=== PATIENT | female | born 1990 | race Caucasian/White ===

== ENCOUNTER → 2016-04-18 | Outpatient (CLI) | payer BC, OTHER ==
[~2016-04-18] MED LIST: FLUT0.15 NAE; IUD'IUD
== END | disposition home or self-care (01) ==
LOC: C.RDSM 15:26
PROVIDERS: ATTEND Physical Medicine & Rehabilitation Sports Medicine
DX: M25.562 Pain in left knee (principal)

== ENCOUNTER → 2016-05-10 | Outpatient (CLI) | payer BC, OTHER ==
--- NOTE | 2016-05-10 21:19 | DIAGNOSTIC IMAGING REPORT ---
MRI OF THE LEFT KNEE CLINICAL HISTORY: Left knee pain. COMPARISON STUDY: Radiograph of left knee dated 04/18/2016. MRI of the left knee dated 03/30/2016. TECHNIQUE: MRI of the left knee was performed utilizing proton density, T1, and T2-weighted sequences in the axial, sagittal, coronal planes. IV contrast was not administered for this examination. The examination is degraded by motion artifact. FINDINGS: Menisci: There is a small radial tear identified in the lateral meniscus, best seen on coronal image #18. There is significant truncation involving the body and posterior horn of the medial meniscus, possibly related to previous surgery. No flipped fragment is identified. Degenerative tearing seen in the remaining posterior horn. Ligaments: Postoperative changes are consistent with previous ACL repair. There is complete rupture of the graft at the tibial insertion. The posterior cruciate ligament is intact. There is thickening and irregularity of the medial collateral ligament consistent with grade 1 injury. The fibers appear intact. The lateral collateral ligament complex appears preserved. Extensor mechanism: The extensor mechanism is intact. Hoffa's fat pad is normal in appearance. Articular cartilage and bone: There is mild (less than 50%) degenerative thinning of the articular cartilage along the weightbearing surface in the medial compartment. The articular cartilage in the lateral and patellofemoral compartments appears preserved. Bony contusion is seen within the medial tibial plateau and the medial femoral condyle. There is also likely contusion within the lateral femoral condyle. Tiny marginal osteophytes are noted. Joint effusion: There is a moderate joint effusion. Soft tissues: There is a large popliteal cyst which measures up to 6 cm. The musculature surrounding the knee joint is normal in bulk and signal intensity. There is deep soft tissue edema identified in the popliteal fossa. IMPRESSION: 1. There is evidence of previous ACL rupture with graft repair. There is full-thickness rupture at the tibial end of the graft. 2. The medial meniscus appears truncated, likely related to previous surgical resection. There is degenerative tearing identified within the remaining posterior horn. 3. A small radial tear is identified in the lateral meniscus. 4. Bony contusions as above. 5. Joint effusion and popliteal cyst. 6. There is thickening and irregularity of the medial collateral ligament consistent with grade 1 injury. The fibers of the ligament are intact. Electronically signed by: Jani Davis M.D. 05/10/2016 9:18 PM Dictated Date/Time: 05/10/2016 9:11 PM
== END | disposition home or self-care (01) ==
LOC: C.MRI 20:01
PROVIDERS: ATTEND Family Medicine
DX: S83.512A Sprain of anterior cruciate ligament of left knee, initial encounter (principal); S83.282A Other tear of lateral meniscus, current injury, left knee, initial encounter; M71.22 Synovial cyst of popliteal space [Baker], left knee; M25.462 Effusion, left knee; X58.XXXA Exposure to other specified factors, initial encounter; Z98.890 Other specified postprocedural states

== ENCOUNTER → 2016-06-28 | Day surgery (SDC) | payer BC, OTHER ==
[2016-06-21 13:18] VITALS: Ht 172.7 cm; Wt 73.6 kg
[~2016-06-28] VITALS: Ht 172.7 cm; Wt 73.6 kg
[~2016-06-28] MED LIST changes: +ATROPINE SULFATE 0.1 MG/ML 5ML SYR IV PRN; +BUPIVACAINE/EPINEPHRINE 0.25% 1:200,000 30 ML VIAL ONE; +CEFAZOLIN 1000MG/55 ML D5W IV SCH; +CEFAZOLIN 2000 MG/60 ML D5W IV SCH; +CEFTRIAXONE SOD 1 GM VIAL ONE; +CEFTRIAXONE SOD 2 GM VIAL IV ONE; +DEXAMETHASONE SOD INJ 4 MG/ML VIAL IV PRN; +DEXAMETHASONE SOD INJ 4 MG/ML VIAL ONE; +EpHEDrine SULFATE INJ 50 MG/ML AMP IV PRN; +EpINEphrine INJ 1MG/ML AMP 1 MG/ML AMP ONE; +FENTANYL CITRATE INJ 50 MCG/1 ML 2 ML VIAL IV PRN; +FENTANYL CITRATE INJ 50 MCG/1 ML 2 ML VIAL ONE; +HYDROmorphone INJ 1 MG/ML SYR ONE; +KETOROLAC TROMETHAMINE 30 MG/ML VIAL IV. PRN; +LABETALOL HCL IV 5 MG/ML 20ML IV PRN; +LACTATED RINGER'S 1000ML 1,000 ML IV SCH; +LIDOCAINE HCL 1% MPF 2 ML VIAL ONE; +LIDOCAINE HCL 2% 2 ML VIAL (20MG/ML) ONE; +METOCLOPRAMIDE HCL INJ 5 MG/ML 2 ML VIAL IV PRN; +MIDAZOLAM HCL 1 MG/ML 2ML VIAL ONE; +MoRPHine SULFATE 10 MG/ML CARP/VIAL IV PRN; +ONDANSETRON INJ 2 MG/ML 2 ML VIAL IV PRN; +ONDANSETRON INJ 2 MG/ML 2 ML VIAL ONE; +OXYCODONE/ACETAMINOPHEN 5-325 TAB PO PRN; +PHENYLEPHRINE 100MCG/ML 5ML SYR IV PRN; +PROPOFOL IV EMULSION 10 MG/ML 20 ML VIAL IV ONE; +SODIUM CHLORIDE 0.9% 1000ML 1,000 ML IV SCH
--- NOTE | 2016-06-28 10:05 | History & Physical Bridge Note ---
H&P Re-Evaluation Bridge Note: I have examined the patient, reviewed the History & Physical and in the interval since the performance of the History & Physical I have noted the following changes of clinical significance: No changes noted
--- NOTE | 2016-06-28 10:06 | Discharge Instructions ---
Discharge Instructions Date of Service Jun 28, 2016. Visit Reason for Visit: Left Knee Acl Graft Tear Discharge Discharge Diagnosis / Problem: same Discharge Goals Goal(s): Decrease discomfort, Improve function Medications Stopped Medications Name(s): na Restart Stopped Medication(s): use scripts as directed Activity Recommendations Activity Limitations: as noted below Lifting Limitations: until after follow-up appointment Exercise/Sports Limitations: until after follow-up appointment May Resume Sexual Activity: after follow-up appointment Shower/Bathe: keep incision dry Driving or Machine Use: resume 1 day after discharge Weightbearing Status: Left weightbearing (as tolerated) Anesthesia . Post Anesthesia Instructions: If you have had General Anesthesia or IV Sedation: * Do not drive today. * Resume driving when surgeon permits. * Do not make important decisions or sign legal documents today. * Call surgeon for: 1. Temperature elevations greater than 101 degrees F. 2. Uncontrollable pain. 3. Excessive bleeding. 4. Persistent nausea and vomiting. 5. Medication intolerance (nausea, vomiting or rash). * For nausea and vomiting use only clear liquids such as: tea, soda, bouillon until nausea subsides, then gradually increase diet as tolerated. * If you have any concerns or questions, call your surgeon's office. If physician is unavailable and it is an emergency, call 911 or go to the nearest emergency room. . Instructions / Follow-Up Instructions / Follow-Up The following instructions are a useful guide to questions you may have after your Anterior Cruciate Ligament Reconstruction surgery. If you have any questions contact the office at . ACTIVITY RECOMMENDATIONS: * Heavy manual labor is not permitted until 4-6 months after surgery. * Sports are not permitted until 6-9 months after surgery. * Return to activity is individualized. * DRIVING: Driving is not permitted until 3-4 weeks after surgery at a minimum. Please ask your doctor when it is safe to resume driving. If you have an automatic vehicle and your left leg has been operated on, then you may begin driving as soon as you are comfortable and can drive safely. * BATHING: You may shower or sponge-bathe immediately after surgery. The dressing will need to be covered with a plastic bag or plastic wrap until the dressing is changed on the fourth or fifth day after surgery. Once the dressing has been changed on the fourth or fifth day after surgery, you may shower and get the incision wet. * Wash with regular soap and water. * Do not bathe (submerge the incision), soak, swim or use a hot tub until the incision is completely healed over with normal skin and the doctor has given the OK to proceed. * There is no need to apply any ointments, powders or salves to your incision. * Do not apply alcohol or hydrogen peroxide directly to the incision. Diluted peroxide (50:50 mixture with sterile saline) may be used to clean dried blood from around the incision area. WORK/SCHOOL: * You may return to sedentary work or school when you are feeling comfortable. This is usually 3-7 days after surgery. * Expect increased discomfort with increased activity. Continue to elevate and ice the leg as much as possible. DIET: * Resume previous diet. MEDICATIONS: * You will have a prescription for pain medication and an anti-inflammatory medication after surgery. Use the pain pills for severe pain and the anti-inflammatory for less severe pain. * Once the pain pills have run out, try to use the anti-inflammatory. If this is not effective then contact the office for assistance. * The pain medication may cause nausea, constipation and sleepiness. You should see how they affect you before driving or similar activity. * The anti-inflammatory may cause stomach upset and bleeding. If this occurs, let your doctor know immediately . * Some patients may need blood clot prevention. This can be done with either a pill or a simple shot. Your doctor will advise you on when to begin these medications and how to take them. * Do not take aspirin or other anti-inflammatory products (i.e. Advil or Aleve ) if taking blood thinner medication. * Take a stool softener like Colace or a stimulant like Senokot to prevent constipation. SPECIAL CARE INSTRUCTIONS: The following instructions are a useful guide to questions you may have after your surgery. If you have any questions contact the office at . ICE: * You have the option of an ice cooler, gel packs or ice bags. * If you have an ice cooler, refer to the instructions for that device. * If you do not have an ice cooler, then you will need to use ice bags or gel packs. * Do not apply ice directly to the skin. * Use a thin dressing or stockinet between the skin and ice bag. * Apply ice for 20-30 minutes and repeat every 2-4 hours. This is especially important for the first 7-10 days after surgery. * Once the pain improves, use ice as needed. * The ice cooler can be used continuously. ELEVATION: * Keep your leg elevated at or above the level of your heart as much as possible. * Expect some increased discomfort and swelling if you are standing for any length of time. * When lying down, avoid placing anything under your knee. Rather, prop your leg up by placing several pillows under your heel or calf. DRESSING: * Your dressing will be changed at your first therapy appointment approximately 4-5 days after surgery. * Band-Aids, tape strips or gauze may be applied. You may then change your dressing daily. * Always wash your hands prior to touching the incision area. * Reapply dressing followed by the Onofre wrap or Tubi-rehab/pre vocational counselor stockinet, ice cooling pad and then the brace. * Once the stitches are removed, you may leave the wound open to air or cover with an Onofre Bandage or Tubi-rehab/pre vocational counselor stockinet. * If you have been given a white elastic stocking (LATASHA hose), wear as much as possible for the first 1-3 weeks depending on swelling. * Expect some bloody drainage for the first few days after surgery. * Leave the tape strips in place for 5-7 days. * Band-Aids and gauze may be changed daily. CRUTCHES: * You will need to use crutches after surgery. * Until your first doctor's appointment, you must use your crutches at all times when walking and should put no more than 50% of your normal weight on the surgical leg. * After your first doctor's appointment, you may gradually progress to full weight bearing and discontinue crutches as tolerated under the guidance of your therapist. * If you have had a microfracture procedure done, you may be advised to be non- weight bearing for up to 6 weeks. BRACE: * After surgery, you will be placed into a range of motion brace locked with your leg straight. This brace is to be worn at all times when walking (even with the crutches) and sleeping until your first doctors appointment. * The brace may be removed for therapy. * After your first therapy appointment, your therapist will open the brace to allow bending of the knee once your muscles are working better. * Until your first doctor's appointment, you should sleep with your brace locked with your knee fully straight. * If you have chosen to use a functional ACL brace then this brace will be supplied about 2-3 months after your surgery. During that time, you will attend therapy 2- 3 times per week. You will also need to do daily exercises for range of motion and strength as instructed. PROBLEMS/QUESTIONS: * If you have any problems such as severe pain, numbness, tingling or high fevers or if you have any questions, please contact the office at [phone]. * It is not uncommon to have some numbness and tingling after the surgery especially if you have had a nerve block done. This should gradually improve over the first 1- 2 days. If this persists longer or worsens then contact the office. FOLLOW UP VISIT: * If not already scheduled, please call the office at to schedule follow-up appointments for approximately 10 days and one month after surgery followed by monthly appointments thereafter. Diet Recommendations Recommended Home Diet: resume previous diet Procedures Procedures Performed: see op note Pending Studies Studies pending at discharge: no Medical Emergencies . Who to Call and When: Medical Emergencies: If at any time you feel your situation is an emergency, please call 911 immediately. . Non-Emergent Contact Non-Emergency issues call your: Specialist Call Non-Emergent contact if: temperature is above 101.5 . . "Provider Documentation" section prepared by Eugenio Dennis.
--- NOTE | 2016-06-28 13:45 | [facility] Post Operative Brief Note ---
Immediate Operative Summary Operative Date Jun 28, 2016. Pre-Operative Diagnosis Left Knee Anterior Cruciate Ligament Tear Post-Operative Diagnosis Same Procedure(s) Performed Left Knee Exam Under Anesthesia, Removal Of Biodegradable Screws, Bone Grafting of Tunnels Surgeon Dr. Dennis Image Processing Engineer Surgeon(s) Alyssa Butler PA-C Estimated Blood Loss 20 ml Findings torn graft/tunnel erosion screw fragmentation Fluids (cc crystalloids) 1200cc Specimens None Drains none Anesthesia block/LMA Complication(s) None Disposition Recovery Room / PACU
--- NOTE | 2016-06-28 14:15 | OPERATIVE REPORT ---
PREOPERATIVE DIAGNOSIS: Left knee anterior cruciate ligament graft tear. POSTOPERATIVE DIAGNOSIS: Left knee same. PROCEDURE: Left knee arthroscopy, exam under anesthesia, removal biodegradable screws, and bone grafting of tunnels. SURGEON: Dr. Dennis. PROCESS CAMERA OPERATOR: Dr. Maldonado. SECOND ENVIRONMENTAL SERVICES WORKER: Og Butler PA-C. HISTORY OF PRESENT ILLNESS: This 25-year-old white female presented to the office with complaints of left knee instability after injuring herself while playing wheelchair basketball. She had a follow-up MRI. This confirmed ACL graft tear. She elected to proceed with surgical intervention after being educated about potential risks and outcomes. OPERATION: The patient was administered regional block and then taken to the operating room where she was given general anesthesia. She was prepped and draped in the usual sterile fashion. Please see Dr. Dennis's operative report for specifics of the procedure. I was present for the entire case from initial patient positioning through final wound closure. Assistance was provided in patient positioning, arthroscopy, hardware removal, bone grafting, and final wound closure. The patient was taken to the recovery room in satisfactory condition.
--- NOTE | 2016-06-28 14:35 | OPERATIVE REPORT ---
DATE OF OPERATION: 06/28/2016 PREOPERATIVE DIAGNOSIS: Failed anterior cruciate ligament graft left knee. POSTOPERATIVE DIAGNOSIS: Same with retained biodegradable screws. PROCEDURE PERFORMED: 1. Exam under anesthesia. 2. Diagnostic arthroscopy. 3. Arthroscopic removal of fragmented hardware. 4. Arthroscopic assisted bone grafting of femoral and tibial tunnels. SURGEON: Dr. Dennis. SENIOR CARE PROVIDER: Dr. Maldonado. SECOND PROJECT ADMIN: Og Butler PA-C. PERIOPERATIVE SITUATION: Medically cleared female who has tore her ACL allograft. At this point in time wants to proceed with surgical treatment. Options were discussed with her concerning the retained screws that were biodegradable, tunnel enlargement and potential need for staging. She understood this clearly as well as her mother. OPERATION AND FINDINGS: OPERATION: The patient appropriately identified, site verified, consent verified, 2 grams of Ancef confirmed as being given. The knee was examined revealing grossly positive Andrea, pivot shift, and anterior drawer test. The collateral ligaments and posterolateral and posteromedial corners were normal. The PCL was normal. Tourniquet was then inflated to 275 mmHg after exsanguination of limb with rubber Esmarch bandage for a total of about 95 minutes. Anteromedial and anterolateral portal made. Inspection of the joint revealed the pathologic plica which was resected, synovitis which was resected. There was a large fragment of bone in the notch that was free. This was removed, likely base from the tibial bone block the graft. Limited notchplasty was performed. The medial meniscus had a large resection of the posterior horn. There was no other tear noted. There were grade 2 changes of the medial femoral condyle and medial tibial plateau. PCL was normal. The ACL graft was completely gone. There were sutures in the joint. These were removed. The lateral meniscus had some minor scuffing which was incidentally debrided. The lateral condylar surface in the area of the impressio terminalis had some minor scuffing, this was debrided. There was no exposed bone. Once this was all cleaned out attempts were made to remove the screws. They were fragmenting creating a large particulate load to the joint. As a result of that and the positioning and the enlargement of the tunnels it was elected to remove all of the biodegradable screws both on the tibia and the femur and then stage this after bone grafting the tunnels. The femoral screw was removed second, the tibial screw was removed first. Incision over the anteromedial screw was made on the previous incision. The screw was attempted to be removed with screwdriver, it fragmented. It then was required to be removed in pieces and ultimately tunnel drilled and cleaned. Once this was done the same was attempted for the femoral screw through the tunnel, but it did the same thing, so it was removed in pieces and then everything debrided. The tunnels were enlarged and created 2 figure of eight holes right next to each other which created a stress riser on the femur. As a result, it was elected to bone graft the femoral tunnel and the tibial tunnel. The knee was copiously irrigated. All loose debris removed and then using a femoral head allograft 2 plugs were made, one 9 mm, one 10 mm. The 9 mm in the femoral tunnel fit well, nice and tight. The same on the tibia. They were filled to the joint line. They were then probed and they were stable. There were no issues. The procedure was then terminated. All instruments and fluid removed. The anteromedial incision closed with 0 Vicryl, 2-0 Vicryl and 3-0 nylon. The portals closed with 3-0 nylon and wound appropriately dressed. She will be weightbearing to tolerance with the brace locked straight. She can start range of motion after a week once there is some healing of the bone plugs and will likely reconstruct her with patellar tendon autograft anywhere from 3-6 months postop. I attest to the content of the Intraoperative Record and any orders documented therein. Any exceptio ns are noted below.
--- NOTE | 2016-06-28 15:14 | Anesthesia Progress Nt - [facility] ---
Anesthesia Post Op Note Date & Time Jun 28, 2016 at 15:14 Vital Signs Pain Intensity: 8.0 Vital Signs Past 12 Hours Date Time Temp Pulse Resp B/P Pulse Ox O2 Delivery O2 Flow Rate FiO2 06/28/16 14:02 36.4 81 20 124/72 99 Diffusion Mask 6 06/28/16 11:37 28 06/28/16 11:36 71 26 93 06/28/16 11:36 68 06/28/16 11:35 108/55 06/28/16 11:31 80 26 100 06/28/16 11:31 77 06/28/16 11:30 77 42 105/54 100 06/28/16 11:30 77 06/28/16 11:25 74 06/28/16 11:25 74 42 99 06/28/16 11:24 112/55 06/28/16 11:22 78 06/28/16 11:22 78 12 99 06/28/16 11:21 87 06/28/16 11:21 90 62 99 06/28/16 11:20 112/57 06/28/16 11:16 86 06/28/16 11:16 85 17 99 06/28/16 11:15 84 06/28/16 11:15 81 22 100 06/28/16 11:14 118/70 06/28/16 11:10 71 15 107/62 100 06/28/16 11:10 75 06/28/16 11:05 64 06/28/16 11:05 65 10 100 06/28/16 11:00 70 12 109/67 06/28/16 10:57 109/71 06/28/16 10:55 64 0 06/28/16 10:50 66 0 06/28/16 10:45 66 0 06/28/16 10:40 19 06/28/16 10:40 63 19 06/28/16 10:35 16 06/28/16 10:35 67 16 06/28/16 10:06 36.7 68 20 124/80 96 Room Air Notes Mental Status: alert / awake / arousable, participated in evaluation Pt Amnestic to Procedure: Yes Nausea / Vomiting: adequately controlled Pain: adequately controlled Airway Patency, RR, SpO2: stable & adequate BP & HR: stable & adequate Hydration State: stable & adequate Anesthetic Complications: no major complications apparent
[2016-06-28 16:20] VITALS: BP 129/76; PULSE 86; TEMP 36.8; O2SAT 98
== END | disposition home or self-care (01) ==
LOC: X.SURG 09:17
PROVIDERS: ATTEND Physical Medicine & Rehabilitation Sports Medicine
DX: M25.362 Other instability, left knee (principal); S83.512A Sprain of anterior cruciate ligament of left knee, initial encounter; X50.0XXA Overexertion from strenuous movement or load, initial encounter; Y93.67 Activity, basketball

== ENCOUNTER → 2016-08-08 | Outpatient (CLI) | payer BC, OTHER ==
[~2016-08-08] MED LIST changes: -ATROPINE SULFATE 0.1 MG/ML 5ML SYR IV PRN; -BUPIVACAINE/EPINEPHRINE 0.25% 1:200,000 30 ML VIAL ONE; -CEFAZOLIN 1000MG/55 ML D5W IV SCH; -CEFAZOLIN 2000 MG/60 ML D5W IV SCH; -CEFTRIAXONE SOD 1 GM VIAL ONE; -CEFTRIAXONE SOD 2 GM VIAL IV ONE; -DEXAMETHASONE SOD INJ 4 MG/ML VIAL IV PRN; -DEXAMETHASONE SOD INJ 4 MG/ML VIAL ONE; -EpHEDrine SULFATE INJ 50 MG/ML AMP IV PRN; -EpINEphrine INJ 1MG/ML AMP 1 MG/ML AMP ONE; -FENTANYL CITRATE INJ 50 MCG/1 ML 2 ML VIAL IV PRN; -FENTANYL CITRATE INJ 50 MCG/1 ML 2 ML VIAL ONE; -HYDROmorphone INJ 1 MG/ML SYR ONE; -KETOROLAC TROMETHAMINE 30 MG/ML VIAL IV. PRN; -LABETALOL HCL IV 5 MG/ML 20ML IV PRN; -LACTATED RINGER'S 1000ML 1,000 ML IV SCH; -LIDOCAINE HCL 1% MPF 2 ML VIAL ONE; -LIDOCAINE HCL 2% 2 ML VIAL (20MG/ML) ONE; -METOCLOPRAMIDE HCL INJ 5 MG/ML 2 ML VIAL IV PRN; -MIDAZOLAM HCL 1 MG/ML 2ML VIAL ONE; -MoRPHine SULFATE 10 MG/ML CARP/VIAL IV PRN; -ONDANSETRON INJ 2 MG/ML 2 ML VIAL IV PRN; -ONDANSETRON INJ 2 MG/ML 2 ML VIAL ONE; -OXYCODONE/ACETAMINOPHEN 5-325 TAB PO PRN; -PHENYLEPHRINE 100MCG/ML 5ML SYR IV PRN; -PROPOFOL IV EMULSION 10 MG/ML 20 ML VIAL IV ONE; -SODIUM CHLORIDE 0.9% 1000ML 1,000 ML IV SCH
== END | disposition home or self-care (01) ==
LOC: C.RDSM 14:00
PROVIDERS: ATTEND Physical Medicine & Rehabilitation Sports Medicine
DX: Z98.890 Other specified postprocedural states (principal)

== ENCOUNTER → 2016-09-27 | Outpatient (CLI) | payer BC, OTHER ==
--- NOTE | 2016-09-27 10:30 | DIAGNOSTIC IMAGING REPORT ---
LEFT KNEE 4 OR MORE CLINICAL HISTORY: LEFT KNEE PAIN COMPARISON: None. DISCUSSION: No evidence for prior anterior cruciate ligament repair. Major joint compartments appear generally well preserved. No significant abnormality of the patellofemoral joint. There is no evidence for soft tissue swelling. IMPRESSION: Chronic and postoperative change. No acute process. No change from the prior exam. Electronically signed by: Tomasz Huang M.D. 09/27/2016 10:29 AM Dictated Date/Time: 09/27/2016 10:27 AM
== END | disposition home or self-care (01) ==
LOC: C.RDSM 10:00
PROVIDERS: ATTEND Physician Assistant
DX: M25.562 Pain in left knee (principal)

== ENCOUNTER → 2016-10-04 | Day surgery (SDC) | payer BC, OTHER ==
[2016-09-14 10:05] VITALS: Ht 172.7 cm; Wt 73.6 kg
[~2016-10-04] VITALS: Ht 172.7 cm; Wt 73.6 kg
[~2016-10-04] MED LIST changes: +ATROPINE SULFATE 0.1 MG/ML 5ML SYR IV PRN; +BUPIVACAINE/EPINEPHRINE 0.25% 1:200,000 30 ML VIAL ONE; +BUPIVACAINE/EPINEPHRINE 0.5% MPF 1:200,000 10 ML VIAL ONE; +CEFAZOLIN 2000 MG/60 ML D5W IV SCH; +DEXAMETHASONE SOD INJ 4 MG/ML VIAL ONE; +EpHEDrine SULFATE INJ 50 MG/ML AMP IV PRN; +EpINEphrine HCL INJ 1 MG/ML 5ML SYRINGE ONE; +FENTANYL CITRATE INJ 50 MCG/1 ML 2 ML VIAL ONE; +FLUMAZENIL 0.1 MG/1 ML 10 ML VIAL IV PRN; +GLYCOPYRROLATE INJ 0.2 MG/ML VIAL ONE; +HYDROmorphone INJ 1 MG/ML SYR IV PRN; +KETOROLAC TROMETHAMINE 30 MG/ML VIAL IV. PRN; +LACTATED RINGER'S 1000ML 1,000 ML IV SCH; +LEVOFLOXACIN 500 MG TAB PO SCH; +LIDOCAINE HCL 2% 2 ML VIAL (20MG/ML) ONE; +MIDAZOLAM HCL 1 MG/ML 2ML VIAL ONE; +NALOXONE HCL 0.4 MG/1 ML VIAL/CARP IV PRN; +NEOSTIGMINE METHYLSULFATE 5 MG/5 ML SYR ONE; +ONDANSETRON INJ 2 MG/ML 2 ML VIAL IV PRN; +ONDANSETRON INJ 2 MG/ML 2 ML VIAL ONE; +OXYCODONE/ACETAMINOPHEN 5-325 TAB PO PRN; +PROMETHAZINE HCL INJ 12.5 MG in SODIUM CHLORIDE 0.9% 50ML 50 ML IV PRN; +PROMETHAZINE HCL INJ 25 MG/ML 1 ML VIAL ONE; +PROPOFOL IV EMULSION 10 MG/ML 20 ML VIAL IV ONE; +SCOPOLAMINE 1.5 MG TDSY TD ONE; +SODIUM CHLORIDE 0.9% 1000ML 1,000 ML IV SCH; +SODIUM CHLORIDE 0.9% INJ 10 ML VIAL ONE; +SUCCINYLCHOLINE CHLORIDE 20 MG/ML 10 ML VIAL IV ONE
--- NOTE | 2016-10-04 07:39 | Discharge Instructions ---
Discharge Instructions Date of Service Oct 04, 2016. Visit Reason for Visit: Left Knee Acl Tear Discharge Discharge Diagnosis / Problem: same Discharge Goals Goal(s): Improve function Medications Stopped Medications Name(s): na Restart Stopped Medication(s): resume all scipts as label directs Activity Recommendations Activity Limitations: as noted below Lifting Limitations: until after follow-up appointment Exercise/Sports Limitations: until after follow-up appointment May Resume Sexual Activity: when tolerated Shower/Bathe: keep incision dry Driving or Machine Use: Weightbearing Status: Left toe touch Anesthesia . Post Anesthesia Instructions: If you have had General Anesthesia or IV Sedation: * Do not drive today. * Resume driving when surgeon permits. * Do not make important decisions or sign legal documents today. * Call surgeon for: 1. Temperature elevations greater than 101 degrees F. 2. Uncontrollable pain. 3. Excessive bleeding. 4. Persistent nausea and vomiting. 5. Medication intolerance (nausea, vomiting or rash). * For nausea and vomiting use only clear liquids such as: tea, soda, bouillon until nausea subsides, then gradually increase diet as tolerated. * If you have any concerns or questions, call your surgeon's office. If physician is unavailable and it is an emergency, call 911 or go to the nearest emergency room. . Instructions / Follow-Up Instructions / Follow-Up The following instructions are a useful guide to questions you may have after your Anterior Cruciate Ligament Reconstruction surgery. If you have any questions contact the office at . ACTIVITY RECOMMENDATIONS: * Heavy manual labor is not permitted until 4-6 months after surgery. * Sports are not permitted until 6-9 months after surgery. * Return to activity is individualized. * DRIVING: Driving is not permitted until 3-4 weeks after surgery at a minimum. Please ask your doctor when it is safe to resume driving. If you have an automatic vehicle and your left leg has been operated on, then you may begin driving as soon as you are comfortable and can drive safely. * BATHING: You may shower or sponge-bathe immediately after surgery. The dressing will need to be covered with a plastic bag or plastic wrap until the dressing is changed on the fourth or fifth day after surgery. Once the dressing has been changed on the fourth or fifth day after surgery, you may shower and get the incision wet. * Wash with regular soap and water. * Do not bathe (submerge the incision), soak, swim or use a hot tub until the incision is completely healed over with normal skin and the doctor has given the OK to proceed. * There is no need to apply any ointments, powders or salves to your incision. * Do not apply alcohol or hydrogen peroxide directly to the incision. Diluted peroxide (50:50 mixture with sterile saline) may be used to clean dried blood from around the incision area. WORK/SCHOOL: * You may return to sedentary work or school when you are feeling comfortable. This is usually 3-7 days after surgery. * Expect increased discomfort with increased activity. Continue to elevate and ice the leg as much as possible. DIET: * Resume previous diet. MEDICATIONS: * You will have a prescription for pain medication and an anti-inflammatory medication after surgery. Use the pain pills for severe pain and the anti-inflammatory for less severe pain. * Once the pain pills have run out, try to use the anti-inflammatory. If this is not effective then contact the office for assistance. * The pain medication may cause nausea, constipation and sleepiness. You should see how they affect you before driving or similar activity. * The anti-inflammatory may cause stomach upset and bleeding. If this occurs, let your doctor know immediately . * Some patients may need blood clot prevention. This can be done with either a pill or a simple shot. Your doctor will advise you on when to begin these medications and how to take them. * Do not take aspirin or other anti-inflammatory products (i.e. Advil or Aleve ) if taking blood thinner medication. * Take a stool softener like Colace or a stimulant like Senokot to prevent constipation. SPECIAL CARE INSTRUCTIONS: The following instructions are a useful guide to questions you may have after your surgery. If you have any questions contact the office at . ICE: * You have the option of an ice cooler, gel packs or ice bags. * If you have an ice cooler, refer to the instructions for that device. * If you do not have an ice cooler, then you will need to use ice bags or gel packs. * Do not apply ice directly to the skin. * Use a thin dressing or stockinet between the skin and ice bag. * Apply ice for 20-30 minutes and repeat every 2-4 hours. This is especially important for the first 7-10 days after surgery. * Once the pain improves, use ice as needed. * The ice cooler can be used continuously. ELEVATION: * Keep your leg elevated at or above the level of your heart as much as possible. * Expect some increased discomfort and swelling if you are standing for any length of time. * When lying down, avoid placing anything under your knee. Rather, prop your leg up by placing several pillows under your heel or calf. DRESSING: * Your dressing will be changed at your first therapy appointment approximately 4-5 days after surgery. * Band-Aids, tape strips or gauze may be applied. You may then change your dressing daily. * Always wash your hands prior to touching the incision area. * Reapply dressing followed by the Onofre wrap or Tubi-ophthalmic asst stockinet, ice cooling pad and then the brace. * Once the stitches are removed, you may leave the wound open to air or cover with an Onofre Bandage or Tubi-ophthalmic asst stockinet. * If you have been given a white elastic stocking (LATASHA hose), wear as much as possible for the first 1-3 weeks depending on swelling. * Expect some bloody drainage for the first few days after surgery. * Leave the tape strips in place for 5-7 days. * Band-Aids and gauze may be changed daily. CRUTCHES: * You will need to use crutches after surgery. * Until your first doctor's appointment, you must use your crutches at all times when walking and should put no more than 50% of your normal weight on the surgical leg. * After your first doctor's appointment, you may gradually progress to full weight bearing and discontinue crutches as tolerated under the guidance of your therapist. * If you have had a microfracture procedure done, you may be advised to be non- weight bearing for up to 6 weeks. BRACE: * After surgery, you will be placed into a range of motion brace locked with your leg straight. This brace is to be worn at all times when walking (even with the crutches) and sleeping until your first doctors appointment. * The brace may be removed for therapy. * After your first therapy appointment, your therapist will open the brace to allow bending of the knee once your muscles are working better. * Until your first doctor's appointment, you should sleep with your brace locked with your knee fully straight. * If you have chosen to use a functional ACL brace then this brace will be supplied about 2-3 months after your surgery. During that time, you will attend therapy 2- 3 times per week. You will also need to do daily exercises for range of motion and strength as instructed. PROBLEMS/QUESTIONS: * If you have any problems such as severe pain, numbness, tingling or high fevers or if you have any questions, please contact the office at [phone]. * It is not uncommon to have some numbness and tingling after the surgery especially if you have had a nerve block done. This should gradually improve over the first 1- 2 days. If this persists longer or worsens then contact the office. FOLLOW UP VISIT: * If not already scheduled, please call the office at to schedule follow-up appointments for approximately 10 days and one month after surgery followed by monthly appointments thereafter. Diet Recommendations Recommended Home Diet: resume previous diet Procedures Procedures Performed: acl reconstruction Pending Studies Studies pending at discharge: no Medical Emergencies . Who to Call and When: Medical Emergencies: If at any time you feel your situation is an emergency, please call 911 immediately. . Non-Emergent Contact Non-Emergency issues call your: Specialist Call Non-Emergent contact if: temperature is above 101.5 . . "Provider Documentation" section prepared by Eugenio Dennis. .
--- NOTE | 2016-10-04 11:14 | [facility] Post Operative Brief Note ---
Immediate Operative Summary Operative Date Oct 04, 2016. Pre-Operative Diagnosis Left knee anterior cruciate ligament tear Post-Operative Diagnosis same Procedure(s) Performed Left Knee Endoscopic Anterior Cruciate Ligament Reconstruction With Patellar Tendon Autograft Surgeon Dr Dennis [employer] Surgeon(s) Irma Butler PA-C Estimated Blood Loss trace Findings acl absence Fluids (cc crystalloids) 1700cc Specimens 0 Drains none Anesthesia GET Complication(s) None Disposition Recovery Room / PACU
--- NOTE | 2016-10-04 11:17 | [facility] Operative Report ---
Operative Report Operative Date Oct 04, 2016. Pre-Operative Diagnosis Left knee anterior cruciate ligament tear Post-Operative Diagnosis same Procedure(s) Performed Left Knee Endoscopic Anterior Cruciate Ligament Reconstruction With Patellar Tendon Autograft Surgeon Dr Dennis Doctor Of Medicine Surgeon(s) Irma Butler PA-C Estimated Blood Loss trace Findings ACL absence/tunnel grafting healed Fluids (cc crystalloids) 1700cc Specimens 0 Drains none Anesthesia GET Complication(s) None Disposition Recovery Room / PACU Implants arthrex tight rope/arthrex 9x20mm screw Indications chronic acl laxity Description of Procedure diagnostic scope/revision acl reconstruction with patellar tendon autograft....interference fixation tibia/tight rope on femur excellent tunnel positioning and fixation/cetral third BTB graft 10mm wide I attest to the content of the Intraoperative Record and any orders documented therein. Any exceptions are noted below.
[2016-10-04 12:40] VITALS: TEMP 36.7
[2016-10-04 13:23] VITALS: BP 125/87; PULSE 69; O2SAT 98
--- NOTE | 2016-10-04 13:36 | Anesthesia Progress Nt - [facility] ---
Anesthesia Post Op Note Date & Time Oct 04, 2016 at 13:35 Vital Signs Pain Intensity: 6 Vital Signs Past 12 Hours Date Time Temp Pulse Resp B/P (MAP) Pulse Ox O2 Delivery O2 Flow Rate FiO2 10/04/16 13:23 69 16 125/87 (100) 98 Room Air 10/04/16 12:40 36.7 59 12 135/84 (101) 100 Room Air 10/04/16 12:36 119/90 10/04/16 12:34 57 11 10/04/16 12:34 57 11 98 10/04/16 12:31 125/82 10/04/16 12:29 56 0 97 10/04/16 12:29 57 0 10/04/16 12:28 59 9 98 10/04/16 12:28 63 9 10/04/16 12:26 120/86 10/04/16 12:25 125/92 10/04/16 12:23 60 14 100 10/04/16 12:23 37.1 53 12 120/86 97 Room Air 10/04/16 12:23 62 14 10/04/16 12:21 122/87 10/04/16 12:18 68 4 10/04/16 12:18 66 4 97 10/04/16 12:16 128/85 10/04/16 12:13 65 14 10/04/16 12:13 64 14 100 10/04/16 12:11 127/86 10/04/16 12:08 91 16 10/04/16 12:08 94 16 100 10/04/16 12:06 142/83 10/04/16 12:03 89 31 99 10/04/16 12:03 88 31 10/04/16 12:02 131/67 10/04/16 11:58 64 12 100 10/04/16 11:58 68 12 10/04/16 11:56 114/93 10/04/16 11:53 93 21 10/04/16 11:53 91 21 100 10/04/16 11:48 69 10 10/04/16 11:48 73 10 100 10/04/16 11:46 149/87 10/04/16 11:43 89 26 142/86 100 10/04/16 11:43 88 26 10/04/16 11:38 84 13 10/04/16 11:38 85 13 100 10/04/16 11:36 148/68 10/04/16 11:33 103 12 10/04/16 11:33 112 12 100 10/04/16 11:31 135/82 10/04/16 11:28 36.3 91 16 135/82 100 Diffusion Mask 6 10/04/16 11:28 98 10/04/16 11:28 98 100 10/04/16 09:32 0 10/04/16 09:27 82 17 100 10/04/16 09:27 81 10/04/16 09:26 113/45 10/04/16 09:22 70 10/04/16 09:22 68 22 100 10/04/16 09:21 72 21 98/59 100 10/04/16 09:21 72 10/04/16 09:21 72 10/04/16 09:21 72 21 98/59 100 10/04/16 09:17 134/98 10/04/16 09:17 134/98 10/04/16 09:16 71 10/04/16 09:16 66 17 100 10/04/16 09:16 66 17 100 10/04/16 09:16 71 10/04/16 09:11 86 11 143/75 100 10/04/16 09:11 89 10/04/16 09:11 86 11 143/75 100 10/04/16 09:11 89 10/04/16 09:06 64 0 100 10/04/16 09:06 64 0 100 10/04/16 09:06 64 10/04/16 09:06 64 10/04/16 09:03 144/65 10/04/16 09:03 144/65 10/04/16 09:01 0 10/04/16 09:01 0 10/04/16 08:56 0 10/04/16 08:56 0 10/04/16 07:24 36.5 68 16 107/75 (86) 98 Room Air Notes Mental Status: alert / awake / arousable, participated in evaluation Pt Amnestic to Procedure: Yes Nausea / Vomiting: adequately controlled Pain: adequately controlled Airway Patency, RR, SpO2: stable & adequate BP & HR: stable & adequate Hydration State: stable & adequate Anesthetic Complications: no major complications apparent
== END | disposition home or self-care (01) ==
LOC: X.SURG 07:16
PROVIDERS: ATTEND Physical Medicine & Rehabilitation Sports Medicine
DX: S83.512A Sprain of anterior cruciate ligament of left knee, initial encounter (principal); X58.XXXA Exposure to other specified factors, initial encounter

== ENCOUNTER → 2016-11-07 | Outpatient (CLI) | payer BC, OTHER ==
[~2016-11-07] MED LIST changes: -ATROPINE SULFATE 0.1 MG/ML 5ML SYR IV PRN; -BUPIVACAINE/EPINEPHRINE 0.25% 1:200,000 30 ML VIAL ONE; -BUPIVACAINE/EPINEPHRINE 0.5% MPF 1:200,000 10 ML VIAL ONE; -CEFAZOLIN 2000 MG/60 ML D5W IV SCH; -DEXAMETHASONE SOD INJ 4 MG/ML VIAL ONE; -EpHEDrine SULFATE INJ 50 MG/ML AMP IV PRN; -EpINEphrine HCL INJ 1 MG/ML 5ML SYRINGE ONE; -FENTANYL CITRATE INJ 50 MCG/1 ML 2 ML VIAL ONE; -FLUMAZENIL 0.1 MG/1 ML 10 ML VIAL IV PRN; -GLYCOPYRROLATE INJ 0.2 MG/ML VIAL ONE; -HYDROmorphone INJ 1 MG/ML SYR IV PRN; -KETOROLAC TROMETHAMINE 30 MG/ML VIAL IV. PRN; -LACTATED RINGER'S 1000ML 1,000 ML IV SCH; -LEVOFLOXACIN 500 MG TAB PO SCH; -LIDOCAINE HCL 2% 2 ML VIAL (20MG/ML) ONE; -MIDAZOLAM HCL 1 MG/ML 2ML VIAL ONE; -NALOXONE HCL 0.4 MG/1 ML VIAL/CARP IV PRN; -NEOSTIGMINE METHYLSULFATE 5 MG/5 ML SYR ONE; -ONDANSETRON INJ 2 MG/ML 2 ML VIAL IV PRN; -ONDANSETRON INJ 2 MG/ML 2 ML VIAL ONE; -OXYCODONE/ACETAMINOPHEN 5-325 TAB PO PRN; -PROMETHAZINE HCL INJ 12.5 MG in SODIUM CHLORIDE 0.9% 50ML 50 ML IV PRN; -PROMETHAZINE HCL INJ 25 MG/ML 1 ML VIAL ONE; -PROPOFOL IV EMULSION 10 MG/ML 20 ML VIAL IV ONE; -SCOPOLAMINE 1.5 MG TDSY TD ONE; -SODIUM CHLORIDE 0.9% 1000ML 1,000 ML IV SCH; -SODIUM CHLORIDE 0.9% INJ 10 ML VIAL ONE; -SUCCINYLCHOLINE CHLORIDE 20 MG/ML 10 ML VIAL IV ONE
== END | disposition home or self-care (01) ==
LOC: C.RDSM 15:41
PROVIDERS: ATTEND Physical Medicine & Rehabilitation Sports Medicine
DX: Z87.828 Personal history of other (healed) physical injury and trauma (principal); Z98.890 Other specified postprocedural states